=== PATIENT | female | born 1985 | race Caucasian/White ===

== ENCOUNTER → 2017-07-20 | Outpatient (CLI) | payer MEDICAID | LOC: FIMAGING 11:37 | PROVIDERS: ATTEND Family Medicine | DX: O09.92 Supervision of high risk pregnancy, unspecified, second trimester (principal); Z98.891 History of uterine scar from previous surgery; Z3A.13 13 weeks gestation of pregnancy ==

== ENCOUNTER → 2017-08-08 | Outpatient (CLI) | payer MEDICAID | LOC: FIMAGING 11:36 | PROVIDERS: ATTEND Family Medicine | DX: O09.92 Supervision of high risk pregnancy, unspecified, second trimester (principal); Z3A.16 16 weeks gestation of pregnancy ==

== ENCOUNTER → 2017-08-22 | Outpatient (CLI) | payer MEDICAID | LOC: FIMAGING 14:33 | PROVIDERS: ATTEND Family Medicine | DX: O34.219 Maternal care for unspecified type scar from previous cesarean delivery (principal); Z3A.18 18 weeks gestation of pregnancy; Z87.59 Personal history of other complications of pregnancy, childbirth and the puerperium; Z87.51 Personal history of pre-term labor ==

== ENCOUNTER → 2017-09-05 | Outpatient (CLI) | payer MEDICAID | LOC: FIMAGING 14:17 | PROVIDERS: ATTEND Family Medicine | DX: O09.91 Supervision of high risk pregnancy, unspecified, first trimester (principal); Z3A.20 20 weeks gestation of pregnancy ==

== ENCOUNTER → 2017-09-28 | Outpatient (CLI) | payer MEDICAID | LOC: FIMAGING 12:53 | PROVIDERS: ATTEND Family Medicine | DX: O09.92 Supervision of high risk pregnancy, unspecified, second trimester (principal); O09.212 Supervision of pregnancy with history of pre-term labor, second trimester; Z3A.23 23 weeks gestation of pregnancy; Z98.891 History of uterine scar from previous surgery ==

== ENCOUNTER → 2017-11-13 | Outpatient (CLI) | payer MEDICAID | LOC: FIMAGING 12:56 | PROVIDERS: ATTEND Family Medicine | DX: O09.892 Supervision of other high risk pregnancies, second trimester (principal); Z3A.30 30 weeks gestation of pregnancy ==